=== PATIENT | female | born 1945 | race African-American/Black ===

== ENCOUNTER 2023-01-16 17:42 | Inpatient (IN) | payer MEDICARE, MEDICAID ==
[~2023-01-16] VITALS: Ht 154.9 cm; Wt 106.1 kg
[~2023-01-16 17:42] MED LIST: APIX5TAB PO; ASPI-1406 PO; ATOR10TA PO; BENA-8 PO; CLON0.1T PO; CYAN100T43 PO; FLUO20CA39 PO; GLIM4TAB36 PO; IBUP-2030 PO; METF-415 PO; OMEP20CA14 PO
[2023-01-16 20:43] LABS: BASOPHILS % 0.5 % (0.0-2.0); EOSINOPHILS % 0.3 % (0.0-5.0); HEMATOCRIT. 39.7 % (36.0-48.0); HEMOGLOBIN. 13.1 g/dL (12.0-16.0); LYMPHOCYTES % 21.1 % (20.0-50.0); MEAN CORPUSCULAR HEMOGLOBIN 30.1 pg (28.0-32.0); MEAN CORPUSCULAR VOLUME 91.2 fL (81.0-99.0); MEAN PLATELET VOLUME 7.4 fl (7.4-10.4); NEUTROPHILS % 69.1 % (40.0-76.0); PLATELET 307 x1000/uL (130-400); RED BLOOD CELL COUNT 4.35 mill/uL (4.2-5.4); RED CELL DISTRIBUTION WIDTH 13.3 % (11.6-14.6); WHITE BLOOD COUNT 12.1 x1000/uL (4.5-11.0)
[2023-01-16 20:53] LABS: CHLORIDE 100 mEq/L (98-107); INDEX HEMOLYSI 1 (1-3); INDEX ICTERIC 1 (1-4); INDEX LIPEMIC 1 (1-3); INR 1.1; POTASSIUM 3.3 mEq/L (3.5-5.1); PROTHROMBIN TIME 11.7 sec (9.6-11.0); SODIUM 135 mEq/L (136-145)
[2023-01-16 21:06] LABS: ALANINE AMINOTRANSFERASE 14 IU/L (13-61); ALBUMIN 3.2 g/dL (3.4-5.0); ASPARTATE AMINOTRANSFERASE 18 IU/L (15-37); BILIRUBIN TOTAL 0.6 mg/dL (0.1-1.0); CALCIUM 8.9 mg/dL (8.5-10.1); CARBON DIOXIDE 27 mEq/L (21-32); CREATININE 0.8 mg/dL (0.6-1.3); GLUCOSE 128 mg/dL (70-105); NT PRO B-TYPE NATRIURETIC PEP 68 pg/mL (5-125); PROTEIN TOTAL 8.1 g/dL (6.0-8.3); TROPONIN I HIGH SENSITIVITY 10 ng/L (<54); UREA NITROGEN BLOOD 8 mg/dL (7-21)
[2023-01-17] VITALS (7 sets, daily range): BP systolic 123–147; BP diastolic 63–71; PULSE 63–87; RESP 18–20; TEMP 96.6–98.5; O2SAT 96
[2023-01-17] MEDS ORDERED: ACETAMINOPHEN 325MG TABLET PO PRN (03:45)
[2023-01-17] MEDS ORDERED: DIPHENHYDRAMINE 50MG/ML VIAL IV PRN (03:45)
[2023-01-17] MEDS ORDERED: ZOLPIDEM TARTRATE 5MG TABLET PO PRN (03:45)
[2023-01-17] MEDS ORDERED: CLONIDINE 0.1MG TABLET PO PRN (03:45)
[2023-01-17] MEDS ORDERED: ONDANSETRON HCL 4MG/2ML INJ IV PRN (03:45)
[2023-01-17] MEDS ORDERED: DEXTROSE 50% WATER 50ML SYRINGE IV PRN (03:45)
[2023-01-17] MEDS: ENOXAPARIN 100MG/ML SYR SUBCUT SCH ×2 (04:34→17:57)
[2023-01-17] MEDS ORDERED: IOHEXOL-350 100 ML BOTTLE ONE (06:05)
[2023-01-17] MEDS: BLOOD SUGAR DIAGNOSTIC STRIP TEST SCH ×4 (07:10→21:49)
[2023-01-17] MEDS: FLUOXETINE HCL 20MG CAPSULE PO SCH (09:37)
[2023-01-17] MEDS: BENAZEPRIL 10MG TABLET PO SCH (09:37)
[2023-01-17] MEDS: POTASSIUM CHLORIDE 20MEQ TABLET SR PO SCH ×2 (09:38→17:57)
[2023-01-17] MEDS ORDERED: IPRATROPIUM/ALBUTEROL 0.5-3(2.5)MG/3ML NEB HHN PRN (13:15)
[2023-01-17] MEDS: INSULIN LISPRO 100 UNITS/ML SUBCUT SCH ×3 (13:35→21:49)
[2023-01-17] MEDS: GABAPENTIN 100MG CAPSULE PO SCH (17:57)
[2023-01-17] MEDS: ACETAMINOPHEN 325MG TABLET PO PRN (18:08)
[2023-01-17] MEDS ORDERED: ATORVASTATIN CALCIUM 10MG TABLET PO SCH (21:00)
[2023-01-17] MEDS: IPRATROPIUM/ALBUTEROL 0.5-3(2.5)MG/3ML NEB HHN SCH (21:26)
[2023-01-17] MEDS: SODIUM CHLORIDE 0.9% INJ 3ML FLUSH IVF SCH (21:48)
[2023-01-18] VITALS (10 sets, daily range): BP systolic 105–146; BP diastolic 55–72; PULSE 62–85; RESP 16–20; TEMP 96.9–98.2; O2SAT 92–95
[2023-01-18] MEDS: IPRATROPIUM/ALBUTEROL 0.5-3(2.5)MG/3ML NEB HHN SCH ×4 (02:35→21:15)
[2023-01-18] MEDS: ENOXAPARIN 100MG/ML SYR SUBCUT SCH ×2 (03:50→16:32)
[2023-01-18] MEDS: ACETAMINOPHEN 325MG TABLET PO PRN (03:51)
[2023-01-18] MEDS: SODIUM CHLORIDE 0.9% INJ 3ML FLUSH IVF SCH ×2 (06:05→18:36)
[2023-01-18] MEDS: INSULIN LISPRO 100 UNITS/ML SUBCUT SCH ×3 (07:00→18:34)
[2023-01-18] MEDS: BLOOD SUGAR DIAGNOSTIC STRIP TEST SCH ×3 (07:00→16:40)
[2023-01-18 07:37] LABS: BASOPHILS % 0.6 % (0.0-2.0); EOSINOPHILS % 1.3 % (0.0-5.0); HEMATOCRIT. 37.2 % (36.0-48.0); HEMOGLOBIN. 12.5 g/dL (12.0-16.0); LYMPHOCYTES % 32.2 % (20.0-50.0); MEAN CORPUSCULAR HEMOGLOBIN 30.6 pg (28.0-32.0); MEAN CORPUSCULAR HGB CONC 33.5 g/dL (31.0-37.0); MEAN CORPUSCULAR VOLUME 91.5 fL (81.0-99.0); MEAN PLATELET VOLUME 7.8 fl (7.4-10.4); MONOCYTES % 11.3 % (2.0-8.0); NEUTROPHILS % 54.6 % (40.0-76.0); PLATELET 283 x1000/uL (130-400); RED BLOOD CELL COUNT 4.07 mill/uL (4.2-5.4); RED CELL DISTRIBUTION WIDTH 13.4 % (11.6-14.6); WHITE BLOOD COUNT 10.6 x1000/uL (4.5-11.0)
[2023-01-18 07:42] LABS: CHLORIDE 104 mEq/L (98-107); INDEX HEMOLYSI 2 (1-3); INDEX ICTERIC 1 (1-4); INDEX LIPEMIC 1 (1-3); POTASSIUM 3.7 mEq/L (3.5-5.1); SODIUM 137 mEq/L (136-145)
[2023-01-18 07:55] LABS: CARBON DIOXIDE 28 mEq/L (21-32); CREATININE 0.7 mg/dL (0.6-1.3); GLUCOSE 118 mg/dL (70-105); PHOSPHORUS 2.9 mg/dL (2.5-4.9); UREA NITROGEN BLOOD 6 mg/dL (7-21)
[2023-01-18] MEDS: GABAPENTIN 100MG CAPSULE PO SCH ×2 (08:41→16:32)
[2023-01-18] MEDS: POTASSIUM CHLORIDE 20MEQ TABLET SR PO SCH ×2 (08:41→16:32)
[2023-01-18] MEDS: FLUOXETINE HCL 20MG CAPSULE PO SCH (08:41)
[2023-01-18] MEDS: BENAZEPRIL 10MG TABLET PO SCH (08:41)
[2023-01-18] MEDS ORDERED: MAGNESIUM 4 G PREMIX 100 ML IV SCH (11:00)
[2023-01-18] MEDS ORDERED: PROMETHAZINE/DEXTROMETHORPHAN 6.25-15MG/5ML BOTTLE 120ML PO PRN (17:00)
== END 2023-01-18 23:10 | disposition left against medical advice (07) | DRG 291 ==
LOC: ER 17:42 → 8WST 01-17 01:36 → EDBEDREQ 01-17 01:41
PROVIDERS: ADMIT Internal Medicine; ATTEND Internal Medicine
DX: I11.0 Hypertensive heart disease with heart failure (principal); I50.33 Acute on chronic diastolic (congestive) heart failure; J96.00 Acute respiratory failure, unspecified whether with hypoxia or hypercapnia; I82.511 Chronic embolism and thrombosis of right femoral vein; Z68.41 Body mass index [BMI] 40.0-44.9, adult; E44.1 Mild protein-calorie malnutrition; E78.00 Pure hypercholesterolemia, unspecified; E66.01 Morbid (severe) obesity due to excess calories; Z53.29 Procedure and treatment not carried out because of patient's decision for other reasons; E83.42 Hypomagnesemia; E87.6 Hypokalemia; I49.9 Cardiac arrhythmia, unspecified; E11.42 Type 2 diabetes mellitus with diabetic polyneuropathy; F20.9 Schizophrenia, unspecified; H40.9 Unspecified glaucoma; R07.89 Other chest pain; Z79.899 Other long term (current) drug therapy; Z79.01 Long term (current) use of anticoagulants
CPT/HCPCS: 36415; 71045; 71275; 80048; 80053; 82962; 83735; 83880; 84100; 84484; 85025; 93005; 93970; 94640; 94664; 99285; J1650; J1815; J3475; Q9967